=== PATIENT | male | born 1985 | race African-American/Black ===

== ENCOUNTER 2016-08-14 21:28 | Emergency (ER) | payer OTHER ==
[~2016-08-14] VITALS: Ht 170.2 cm; Wt 87.5 kg
[~2016-08-14 21:28] MED LIST: LEVSIN0.125 MG PO
--- NOTE | 2016-08-14 21:48 | ED DYSPNEA/ASTHMA COMPLAINT ---
History of Present Illness General Chief Complaint: General Adult Stated Complaint: "BEEN COUGHING AND HURTS CHEST" Source: patient, family, old records Exam Limitations: no limitations Vital Signs & Intake/Output Vital Signs & Intake/Output Vital Signs Date Time Temp Pulse Resp B/P Pulse O2 O2 Flow FiO2 Ox Delivery Rate 08/14 2155 99 Room Air 08/14 2148 101.3 115 20 145/88 96 Room Air Allergies Coded Allergies: NO KNOWN ALLERGIES (10/09/15) Reconcile Medications Amoxicillin 500 MG TABLET 1 TAB PO TID BRONCHITIS Robitussin AC (Guaifenesin-Codeine Syrup) 200 MG-20 MG/10 ML LIQUID 10 ML PO Q6P PRN COUGH Triage Nurses Notes Reviewed? yes HPI: Patient presents with a three-day history of productive cough with brown sputum, sore throat and fevers and chills. Patient states that he is now getting a burning and sharp pain in the center of his chest whenever he coughs. There is no pain when he is not coughing. The pain in his throat is an achy pain. There is no radiation. There are no aggravating or mitigating factors. Patient has not taken his temperature but feels that he has a fever. Patient denies any dysuria. There is no nausea or vomiting or diarrhea. At its worst the pain in his chest is 4 out of 10. And the pain in his throat is 3 out of 10. The chest pain is intermittent only when he coughs. The pain in his throat is constant. Past History Travel History Traveled to [place] past 21 day No Medical History Any Pertinent Medical History? 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 No Review of Systems Review of Systems Constitutional: Reports: see HPI, chills, fever. EENTM: Reports: see HPI, throat pain. Respiratory: Reports: see HPI, cough, sputum production. Cardiovascular: Reports: see HPI, chest pain. GI: Reports: no symptoms. Genitourinary: Reports: no symptoms. Musculoskeletal: Reports: no symptoms. Skin: Reports: no symptoms. Neurological/Psychological: Reports: no symptoms. Hematologic/Endocrine: Reports: no symptoms. Immunologic/Allergic: Reports: no symptoms. All Other Systems: Reviewed and Negative Physical Exam Physical Exam General Appearance: well developed/nourished, alert, awake, moderate distress Head: atraumatic, normal appearance Eyes: Bilateral: PERRL, EOMI. Ears, Nose, Throat: normal pharynx, normal ENT inspection, NO PHARYNGEAL OR TONSILLAR ERYTHEMA OR EXUDATES Neck: supple, lymphadenopathy (R), lymphadenopathy (L) Respiratory: chest non-tender, no respiratory distress, rhonchi (SCATTERED) Cardiovascular: regular rate/rhythm, normal peripheral pulses Gastrointestinal: normal bowel sounds, soft, non-tender, no organomegaly Extremities: normal inspection, normal capillary refill, normal range of motion, no edema Neurologic/Psych: no motor/sensory deficits, awake, alert, oriented x 3, normal mood/affect Skin: intact, normal color, warm/dry Lymphatic: no anterior cervical oscar Core Measures ACS in differential dx? No Severe Sepsis Present: No Septic Shock Present: No Progress Differential Diagnosis: bronchitis, pneumonia, INFLUENZA, STREP PHARYNGITIS Plan of Care: Orders Procedure Date/time Status THROAT CULTURE W/QUICK STREP 08/14 2147 Active Diagnostic Imaging: Viewed by Me: Radiology Read. Discussed w/RAD: Radiology Read. CXR Impression: PATIENT: ROS THOMAS PRESENT AGE: 31 PATIENT ACCOUNT NO: [id number] : 85 LOCATION: [facility] ORDERING PHYSICIAN: CHANDRIKA VALENZUELA MD SERVICE DATE: 08/14/16 EXAM TYPE: RAD - XRY-CHEST XRAY, PA AND LATERAL EXAMINATION: XR CHEST CLINICAL INFORMATION: 31-year-old male with cough and fever. COMPARISON: Chest x-ray on 08/21/2013. (Normal). TECHNIQUE: AP and lateral erect views of the chest. FINDINGS: It would appear that the patient did not take a full inspiration for this exam. The heart is normal in size. The lungs are clear. There is no pleural effusion. IMPRESSION: Low volumes. No pneumonia. DICTATED BY: GENI UGARTE MD DATE/TIME DICTATED: 08/14/162228 [employer]OR [employer]SEM[employer] SUPERVISOR:INDY DATE/TIME TRANSCRIBED:08/14/162228 CONFIDENTIAL, DO NOT COPY WITHOUT APPROPRIATE AUTHORIZATION. <Electronically signed in Other Vendor System> SIGNED BY: GENI UGARTE MD 08/14/16 8174 Initial ED EKG: none Comments: Patient is outside of the window for Tamiflu so influenza not checked. Departure Departure Disposition: HOME OR SELF CARE Condition: Stable Clinical Impression Primary Impression: Bronchitis Referrals: PATIENT HAS NO PRIMARY CARE DR (PCP/Family) Additional Instructions: DRINK PLENTY OF FLUIDS TAKE TYLENOL OR MOTRIN (ADVIL, IBUPROFEN) NEEDED FOR FEVERS RETURN IF SYMPTOMS WORSEN OR FOR ANY CONCERNS Departure Forms: Customer Survey General Discharge Information Prescriptions: Current Visit Scripts Amoxicillin 1 TAB PO TID #30 TAB Robitussin AC (Guaifenesin-Codeine Syrup) 10 ML PO Q6P PRN COUGH #240 ML Critical Care Note Critical Care Note Critical Care Time: non-applicable
[2016-08-14 21:49] VITALS: BP 145/88
--- NOTE | 2016-08-14 22:34 | RADIOLOGY REPORT ---
EXAMINATION: XR CHEST CLINICAL INFORMATION: 31-year-old male with cough and fever. COMPARISON: Chest x-ray on 08/21/2013. (Normal). TECHNIQUE: AP and lateral erect views of the chest. FINDINGS: It would appear that the patient did not take a full inspiration for this exam. The heart is normal in size. The lungs are clear. There is no pleural effusion. IMPRESSION: Low volumes. No pneumonia.
[2016-08-14] MEDS ORDERED: AMOXICILLIN500 M3 PO (22:45)
[2016-08-14] MEDS ORDERED: GUAIFENESIN-COD10 ML PO (22:45)
== END 2016-08-14 22:50 ==
LOC: ERH 21:28
DX: J40 Bronchitis, not specified as acute or chronic (principal); R07.89 Other chest pain